=== PATIENT | male | born 1960 | race Caucasian/White ===

== ENCOUNTER → 2017-06-28 | Outpatient (CLI) | payer MEDICAID ==
[~2017-06-28] MED LIST: NOMEDS XX; NORCO 325 MG-51 TAB PO
[2017-06-28 12:22] LABS: HEMOGLOBIN 16.9 g/dL (14.1-18.0); LYMPH # 2.3 K/mm3 (0.7-4.5); LYMPH % 27.5 % (10-50)
[2017-06-28 13:15] LABS: BUN 16 mg/dL (7-18)
[2017-06-28 13:20] LABS: GFR (ESTIMATED) 62 ML/MIN (>60)
[2017-06-29 08:51] LABS: HBsAg Screen Negative (Negative); Hep A Ab, IgM Negative (Negative); Hep B Core Ab, IgM Negative (Negative); Hep C Virus Ab <0.1 (0.0-0.9); Vitamin D, 25-Hydroxy 26.8 ng/mL (30.0-100.0)
== END ==
LOC: LAB 11:59
PROVIDERS: Nurse Practitioner Family
DX: R53.83 Other fatigue (principal); Z00.00 Encounter for general adult medical examination without abnormal findings; E55.9 Vitamin D deficiency, unspecified

== ENCOUNTER → 2017-06-29 | Outpatient (CLI) | payer MEDICAID ==
[2017-06-29 09:08] LABS: AEROMONAS NOT DETECTED (NOT DETECTE); ASTROVIRUS NOT DETECTED (NOT DETECTE); CYCLOSPORA CAYETANENSIS NOT DETECTED (NOT DETECTE); E COLI O157 NOT DETECTED (NOT DETECTE); ENTEROAGGREGATIVE E COLI NOT DETECTED (NOT DETECTE); ENTEROPATHOGENIC E COLI NOT DETECTED (NOT DETECTE); ENTEROTOXIGENIC E COLI NOT DETECTED (NOT DETECTE); NOROVIRUS NOT DETECTED (NOT DETECTE); SAPOVIRUS NOT DETECTED (NOT DETECTE); SHIGA-LIKE TOXIN PROD. E COLI NOT DETECTED (NOT DETECTE); SHIGELLA/ENTEROINVASIVE E COLI NOT DETECTED (NOT DETECTE); VIBRIO CHOLERAE NOT DETECTED (NOT DETECTE)
== END ==
LOC: LAB 09:05
PROVIDERS: Nurse Practitioner Family
DX: R11.0 Nausea (principal); R19.7 Diarrhea, unspecified

== ENCOUNTER → 2017-07-04 | Outpatient (CLI) | payer MEDICAID ==
--- NOTE | 2017-07-04 08:40 | RADIOLOGY REPORT PS360 ---
US RUQ-(ABD LTD)1ORGAN/QUAD/FU HISTORY: RUQ PAIN ORDERING PHYSICIAN: KENTRELL STEWART PATIENT AGE: 57 years COMPARISON: None FINDINGS: PANCREAS:Unremarkable. No obvious mass or abnormal fluid collection. No ductal dilatation LIVER:No focal liver lesions demonstrated. Homogeneous echogenicity. No intrahepatic biliary ductal dilatation evident RIGHT KIDNEY:Unremarkable. Normal size and echogenicity. No hydronephrosis GALLBLADDER:No gallstones, gallbladder wall thickening, pericholecystic fluid, or biliary dilatation. Minimal gallbladder sludge versus concentrated bile in this fasting patient IMPRESSION: 1. No gallstones apparent. 2. Minimal gallbladder sludge versus concentrated bile in this fasting patient of questionable clinical significance
== END ==
LOC: RAD 07:50
DX: R10.11 Right upper quadrant pain (principal)

== ENCOUNTER → 2017-07-24 | Outpatient (CLI) | payer MEDICAID ==
--- NOTE | 2017-07-24 14:41 | RADIOLOGY REPORT PS360 ---
[facility] HEPATOBILIARY SCAN HISTORY: RUQ PAIN ORDERING PHYSICIAN: JUSTIN JOHN PATIENT AGE: 57 years COMPARISON: None DOSE: 8.3 mCi technetium Choletec. Fatty meal: Ensure. No pain reported with fatty meal. FINDINGS: Homogeneous activity is present within the hepatic parenchyma. Activity is present in the gallbladder by 10 minutes. Activity is present in the small bowel by 15 minutes. The gallbladder ejection fraction is calculated to be 33% The patient did not report pain or other symptoms during the fatty meal. IMPRESSION: 1. No evidence of common or cystic duct obstruction. 2. Slightly low gallbladder ejection fraction of 33%. No pain reported with fatty meal.
== END ==
LOC: RAD 10:20
DX: R10.11 Right upper quadrant pain (principal)
CPT/HCPCS: A9537